=== PATIENT | female | born 1985 | race Caucasian/White ===

== ENCOUNTER 2024-01-12 08:37 | Outpatient (CLI) | payer BC ==
[~2024-01-12] VITALS: Ht 162.6 cm; Wt 81.6 kg
[2024-01-12] MEDS ORDERED: albuterol 2.5 MG/3 ML nebule NEB ONE (09:10)
[2024-01-12 09:18] LABS: TOTAL HEMOGLOBIN 13.6 G/dl (12.0-16.0)
[2024-01-12 09:55] VITALS: PULSE 96; RESP 16; O2SAT 98
== END 2024-01-12 23:59 | disposition home or self-care (01) ==
LOC: RT 08:37
PROVIDERS: ATTEND Family Medicine
DX: J68.0 Bronchitis and pneumonitis due to chemicals, gases, fumes and vapors (principal)
CPT/HCPCS: 85018; 94010; 94727; 94729; 94760